=== PATIENT | female | born 1970 | race Caucasian/White ===

== ENCOUNTER 2020-07-19 09:29 | Outpatient (REF) | payer OTHER, SELFPAY | END 2020-07-19 09:30 | disposition home or self-care (01) | LOC: HO.LAB 09:29 | PROVIDERS: Visit Provider Internal Medicine | DX: Z20.828 Contact with and (suspected) exposure to other viral communicable diseases (principal) | CPT/HCPCS: C9803; U0003 ==

== ENCOUNTER 2020-10-02 21:35 | Emergency (ER) | payer OTHER, SELFPAY ==
[2020-10-02 21:46] VITALS: BP 137/78; PULSE 104; RESP 16; TEMP 36.8; O2SAT 99; BMI 36.6
--- NOTE | 2020-10-02 22:12 | ED_ITS ---
HPI - Allergic Reaction General Chief complaint: Allergic Reaction Stated complaint: Hives Source: patient Mode of arrival: ambulatory Limitations: language barrier History of Present Illness HPI narrative: 50-year-old female with no significant past medical history presents with itching, and hives throughout her body after eating English fries at [employer]. She has never had an allergic reaction in the past, and does not describe any medical history, does not take any medications. Itching and hives started at 8:30 p.m.. complaint: allergic reaction and hives Onset (ago): hour(s) (2 hours prior to arrival) Exposure: food Symptoms: rash and itching Severity: moderate Treatment prior to arrival: none Previous Allergic Reaction History: none Related Data Previous Rx's Medication Instructions Recorded diphenhydramine HCl [Benadryl] 50 mg PO Q6H PRN 3 Days cap 10/02/20 epinephrine [EpiPen 2-Tirso] 0.3 mg IM Q10M PRN #2 ea 10/02/20 famotidine [Pepcid] 40 mg PO DAILY 3 Days #3 tab 10/02/20 Allergies Allergy/AdvReac Type Severity Reaction Status Date / Time No Known Allergies Allergy Verified 10/02/20 21:53 Review of Systems Review of Systems: Constitutional: No Fever, No Chills ENT/Mouth: No oral swelling, No Hoarseness, No Swallowing Difficulty Eyes: No Eye Pain, No Swelling, No Redness Cardiovascular: No Chest Pain, No SOB Respiratory: No Cough, No Sputum, No Wheezing, No Smoke Exposure, No Dyspnea Gastrointestinal: No Nausea, No Vomiting, No Diarrhea, No abdominal Pain Genitourinary: No Dysuria, No Urinary Frequency, No Hematuria Musculoskeletal: No joint pain, No Myalgias, No Joint Swelling Skin: No Skin Lesions, positive rash to extremities chest and neck, positive erythema to extremities chest and neck Neuro: No Weakness, No Numbness, No Headache Psych: No Anxiety/Panic, No Depression Heme/Lymph: No Bruising, No Lymphadenopathy Endocrine: No Polyuria, No Polydipsia Yes all other systems are reviewed and are negative [facility] Past Medical History Attestation statement: The following information was validated with the patient. Source: old records reviewed Medical History No known health problems Social History Social History Advance Directives: No Advance Directives Information Provided: Yes Physical Exam Vital Signs: Vital Signs: Last Vital Signs Temp 98.3 F 10/02/20 21:46 Pulse 104 H 10/02/20 23:50 Resp 16 10/02/20 23:50 BP 163/97 H 10/02/20 23:50 Pulse Ox 95 10/02/20 23:50 Body Mass Index 36.6 Appearance: Alert. Oriented X3. Mild distress. Eyes: Pupils equal, round and reactive to light. EOMI ENT: Pharynx normal. No oropharyngeal edema, uvula midline, tympanic membranes normal, cranial nerves 2-12 intact Neck: Normal inspection. Neck supple. , no tracheal stridor noted CVS: Normal heart rate and rhythm. Pulses normal. Respiratory: No respiratory distress. Lung sounds clear to all lobes, even unlabored respirations, no chest wall tenderness to palpation Abdomen: Soft and nontender to palpation Skin: Urticaria and erythema noted to extremities, chest and neck and abdomen, Skin warm and dry. Normal skin turgor. Extremities: No lower extremity edema. Neuro: No motor deficit. No sensory deficit. Course Course Course Narrative: 50-year-old female with no significant medical history presents with her 1st episode of allergic reaction after eating English fries at [employer]. Plan of care is for Solu-Medrol, Benadryl, and Pepcid. We will monitor for decompensation. Approximately 1 hour after medication administration, even unlabored respirations, no tracheal stridor, lung sounds clear to auscultation all lobes, no pain reported, skin is now pink, most of the urticaria has now resolved. 2340 urticaria has resolved, even unlabored respirations, no tracheal stridor, lung sounds clear auscultation all lobes, no pain reported plan of care is to discharge home with Benadryl, Pepcid, and prescription for EpiPen. Detailed description regarding when to use an EpiPen discussed, patient verbalized understanding of and agrees to plan of care discharge home. spanish medical interpreter utilized for all correspondence. [employer] translate utilized for discharge instructions. MDM - Allergic Reaction Differential Diagnosis Differential diagnosis: Likely anaphylaxis, allergic reaction, angioedema, contact dermatitis and adverse reaction to drug Medical Records Attestation: I reviewed the patient's medical records. Lab Data Attestation: I reviewed the patient's lab results. Discharge Plan Discharge Clinical Impression: Urticaria Allergic reaction Qualifiers: Encounter type: initial encounter Qualified Code(s): T78.40XA - Allergy, unspecified, initial encounter Patient Disposition: Home, Self-Care Instructions: General Allergic Reaction (ED) Additional Instructions: You were evaluated for itching and hives after eating [facility] at [facility]. This was your 1st allergic reaction. You must follow-up with her primary care physician for allergy testing. Please take Benadryl 50 mg every 6-8 hours for the next 3 days to help control symptoms. Please take Pepcid 20 mg daily for the next 3 days. We prescribed EpiPen. Use this EpiPen only for anaphylactic reactions where you cannot breathe. If you use the EpiPen you must present to the emergency department by ambulance. Thank you for choosing this emergency department for evaluation. Please follow-up with primary care physician as needed. Return to the emergency department for any new, concerning, or worsening symptoms. Prescriptions: New diphenhydramine HCl [Benadryl] 25 mg capsule 50 mg PO Q6H PRN (Reason: Allergic reaction) 3 Days RF: 0 famotidine [Pepcid] 40 mg tablet 40 mg PO DAILY 3 Days Qty: 3 RF: 0 epinephrine [EpiPen 2-Tirso] 0.3 mg/0.3 mL auto-injector 0.3 mg IM Q10M PRN (Reason: anaphylaxis) Qty: 2 RF: 0 Interventions: ED Discharge Assessment Last Done: 10/03/20 00:12 Discharge Date/Time: 10/03/20 00:13
[2020-10-02] MEDS: Famotidine/PF 20 MG/2 ML VIAL IVPUSH (22:31)
[2020-10-02] MEDS: 0.9 % Sodium Chloride 1,000 ML 999 ML IVCONT (22:31)
[2020-10-02] MEDS: methylPREDNISolone Sod Succ/PF 125 MG/2 ML VIAL IVPUSH (22:31)
[2020-10-02] MEDS: diphenhydrAMINE HCL 50 MG/ML VIAL IVPUSH (22:31)
[2020-10-02 22:40] VITALS: BP 167/86; PULSE 105; RESP 26; O2SAT 99
--- NOTE | 2020-10-02 23:11 | PC.NURSE ---
PATIENT REPORTS RASH BETTER AT THIS TIME.
[2020-10-02 23:50] VITALS: BP 163/97; PULSE 104; RESP 16; O2SAT 95
== END 2020-10-03 00:13 | disposition home or self-care (01) ==
PROVIDERS: Emergency Provider Student in an Organized Health Care Education/Training Program; PCP Internal Medicine Geriatric Medicine
DX: L50.9 Urticaria, unspecified (principal); T78.40XA Allergy, unspecified, initial encounter; X58.XXXA Exposure to other specified factors, initial encounter
CPT/HCPCS: 96361; 96374; 96375; 99284; J1200; J2930